=== PATIENT | male | born 1990 | race Caucasian/White ===

== ENCOUNTER 2023-03-24 11:57 | Emergency (ER) | payer OTHER ==
[2023-03-24] MEDS ORDERED: Ketorolac Tromethamine 30 MG (1 mL) VIAL ONE (12:24)
== END 2023-03-24 12:40 | disposition home or self-care (01) ==
LOC: ERS 11:57
DX: K04.7 Periapical abscess without sinus (principal)
CPT/HCPCS: 96374; J1885